=== PATIENT | female | born 1990 | race Hispanic/Latino ===

== ENCOUNTER 2018-01-04 21:54 | Emergency (ER) | payer SELFPAY ==
[2018-01-04 22:06] VITALS: BMI 13.9
[2018-01-04 22:07] VITALS: RESP 18; TEMP 98.7
--- NOTE | 2018-01-04 22:10 | ED PDOC ---
Arrival/HPI - General Time Seen by Provider: 01/04/18 21:56 Historian: Patient - History of Present Illness Narrative History of Present Illness (Text): 01/04/18 22:10 Cady Abdullahi is a 28 year old female, whose past medical history includes asthma , who presents to the Emergency department complaining of abdominal pain. Patient states she has been experiencing intermittent lower abdominal pain for the past week. Patient states her last normal menstrual period was on 2017. Patient denies any fever, chills, nausea, vomiting, diarrhea, urinary symptoms, vaginal discharge, back pain, headache, dizziness, or any other complaints. Time/Duration: 1 week Symptom Onset: Gradual Symptom Course: Unchanged, Intermittent Activities at Onset: Light Context: Home Past Medical History - Provider Review Nursing Documentation Reviewed: Yes - Psychiatric Hx Depression: No Hx Emotional Abuse: No Hx Physical Abuse: No Hx Substance Use: No - Suicidal Assessment Feels Threatened In Home Enviroment: No Family/Social History - Physician Review Nursing Documentation Reviewed: Yes Family/Social History: Unknown Family HX Hx Alcohol Use: No Hx Substance Use: No Hx Substance Use Treatment: No Allergies/Home Meds Allergies/Adverse Reactions: Allergies No Known Allergies Allergy (Verified 01/04/18 22:07) Home Medications: Home Meds Medication Instructions Recorded Confirmed No Known Home Med 04/03/12 01/04/18 Review of Systems - Physician Review All systems were reviewed & negative as marked: Yes - Review of Systems Constitutional: Normal. absent: Fevers Eyes: Normal ENT: Normal Respiratory: Normal. absent: SOB, Cough Cardiovascular: Normal. absent: Chest Pain Gastrointestinal: Abdominal Pain. absent: Diarrhea, Vomiting Genitourinary Female: Normal. absent: Dysuria, Frequency, Hematuria, Urine Output Changes Musculoskeletal: Normal. absent: Back Pain, Neck Pain Skin: Normal. absent: Rash Neurological: Normal. absent: Headache, Dizziness Endocrine: Normal Hemo/Lymphatic: Normal Psychiatric: Normal Physical Exam Vital Signs Reviewed: Yes Vital Signs Temp Pulse Resp BP Pulse Ox 01/04/18 22:06 98.7 F 97 H 18 117/85 97 Temperature: Afebrile Blood Pressure: Normal Pulse: Regular Respiratory Rate: Normal Appearance: Positive for: Well-Appearing, Non-Toxic, Comfortable Pain Distress: None Mental Status: Positive for: Alert and Oriented X 3 - Systems Exam Head: Present: Atraumatic, Normocephalic Pupils: Present: PERRL Extroacular Muscles: Present: EOMI Conjunctiva: Present: Normal Mouth: Present: Moist Mucous Membranes Neck: Present: Normal Range of Motion. No: Meningeal Signs, MIDLINE TENDERNESS , Paraspinal Tenderness Respiratory/Chest: Present: Clear to Auscultation, Good Air Exchange. No: Respiratory Distress, Accessory Muscle Use Cardiovascular: Present: Regular Rate and Rhythm, Normal S1, S2. No: Murmurs Abdomen: No: Tenderness, Distention, Peritoneal Signs Back: Present: Normal Inspection. No: CVA Tenderness, Midline Tenderness, Paraspinal Tenderness Upper Extremity: Present: Normal Inspection. No: Cyanosis, Edema Lower Extremity: Present: Normal Inspection. No: Edema Neurological: Present: GCS=15, CN II-XII Intact, Speech Normal Skin: Present: Warm, Dry, Normal Color. No: Rashes Psychiatric: Present: Alert, Oriented x 3, Normal Insight, Normal Concentration Medical Decision Making ED Course and Treatment: 01/04/18 22:10 Impression: 28 year old female complaining of intermittent lower abdominal pain for the 1 week. Plan: -- Transvaginal US -- Labs, lipase -- UA -- Reassess and disposition Progress Notes: 01/05/18 01:07 Transvaginal US shows: No acute findings. Bilateral ovarian follicles. Complex hemorrhagic right ovarian dominant follicle. CT Abdomen and Pelvis ordered. 01/05/18 02:59 Leaving Against Medical Advice (AMA): The patient is choosing to leave against medical advice. I have personally explained to the patient that choosing to do so may result in permanent bodily harm or . I have discussed at great length that without further evaluation and monitoring there may be unforeseen circumstances and/or deterioration causing permanent bodily harm or as a result of their choice. The patient is alert, oriented, and shows the mental capacity to make clear decisions regarding the patients health care at this time. The patient continues to wish to leave against medical advice. In light of the patients decision to leave against medical advice, patient is aware of the importance to following up as instructed. The patient has been advised that they should return to the emergency room immediately if they change their mind at any time, or if their condition begins to change or worsen in any way. - Lab Interpretations Lab Results: 01/04/18 22:35 01/04/18 22:35 Lab Results 01/04/18 22:35: WBC 11.3 H, RBC 4.23, Hgb 13.0, Hct 38.3, MCV 90.5, MCH 30.7, MCHC 33.9, RDW 14.1, Plt Count 333, MPV 9.6 01/04/18 22:35: Sodium 140, Potassium 4.1, Chloride 101, Carbon Dioxide 27, Anion Gap 16, BUN 10, Creatinine 0.6 L, Est GFR ( Amer) > 60, Est GFR ( Non-Af Amer) > 60, Random Glucose 119 H, Calcium 9.1, Total Bilirubin 0.7, AST 24, ALT 19, Alkaline Phosphatase 64, Total Protein 7.5, Albumin 4.3, Globulin 3.2, Albumin/Globulin Ratio 1.4, Lipase 17 L 01/04/18 22:30: Urine Color yellow, Urine Appearance Sl cloudy, Urine pH 6.0, Ur Specific [place] >= 1.030, Urine Protein 30 H, Urine Glucose (UA) Negative, Urine Ketones Negative, Urine Blood Trace-intact H, Urine Nitrate Negative, Urine Bilirubin Negative, Urine Urobilinogen 0.2, Ur Leukocyte Esterase Moderate H, Urine RBC 10 - 15, Urine WBC 10 - 15, Ur Epithelial Cells Many, Amorphous Sediment Moderate, Urine Bacteria Trace, Urine HCG, Qual Negative I have reviewed the lab results: Yes - RAD Interpretation Radiology Orders: 01/04/18 22:21 TRANSVAGINAL [US] Stat 01/05/18 01:07 ABD & PELVIS IV CONTRAST ONLY [CT] Stat [employer]: Radiologist - Scribe Statement The provider has reviewed the documentation as recorded by the Scriblaurent Solano All medical record entries made by the Azebiblaurent were at my direction and personally dictated by me. I have reviewed the chart and agree that the record accurately reflects my personal performance of the history, physical exam, medical decision making, and the department course for this patient. I have also personally directed, reviewed, and agree with the discharge instructions and disposition. Disposition/Present on Arrival - Present on Arrival Any Indicators Present on Arrival: No History of DVT/PE: No History of Uncontrolled Diabetes: No Urinary Catheter: No History Surgical Site Infection Following: None - Disposition Have Diagnosis and Disposition been Completed?: Yes Diagnosis: Abdominal pain Disposition: AGAINST MEDICAL ADVICE Disposition Time: 03:04 Condition: STABLE Referrals: Rosa Ferrell MD [Primary Care Provider] - Follow up with primary
[2018-01-04 22:44] LABS: MEAN CELL VOLUME 90.5 fl (80.0-105.0); MEAN CORPUSCULAR HEMOGLOBIN 30.7 pg (25.0-35.0); MEAN CORPUSCULAR HGB CONC 33.9 g/dl (31.0-37.0); MEAN PLATELET VOLUME 9.6 fl (7.0-11.0); RBC 4.23 10^6/uL (3.5-6.1); RED CELL DISTRIBUTION WIDTH 14.1 % (11.5-14.5); WHITE BLOOD COUNT 11.3 10^3/ul (4.5-11.0)
[2018-01-04 22:50] LABS: ALB/GLOB RATIO 1.4 (1.1-1.8); ALBUMIN 4.3 g/dL (3.0-4.8); ALT/SGPT 19 U/L (7-56); AST/SGOT 24 U/L (14-36); BLOOD UREA NITROGEN 10 mg/dL (7-21); CALCIUM 9.1 mg/dL (8.4-10.5); GFR AFRICAN-AMERICAN > 60; GFR NON-AFRICAN AMERICAN > 60; LIPASE 17 U/L (23-300)
[2018-01-04 22:55] LABS: URINE APPEARANCE SL CLOUDY (CLEAR); URINE BILIRUBIN NEGATIVE (NEGATIVE); URINE BLOOD TRACE-INTACT (NEGATIVE); URINE GLUCOSE (UA) NEGATIVE (NEGATIVE); URINE LEUKOCYTE ESTERASE MODERATE Leu/uL (NEGATIVE); URINE PROTEIN 30 mg/dL (<30 mg/dL); URINE UROBILINOGEN 0.2 E.U./dL (<1 E.U./dL)
[2018-01-04 22:56] LABS: URINE AMORPHOUS SEDIMENT MODERATE; URINE BACTERIA TRACE (NEG); URINE EPITHELIAL CELLS MANY /hpf (0-5)
[2018-01-04 22:58] LABS: HCG,QUALITATIVE URINE NEGATIVE (NEGATIVE)
[2018-01-05] MEDS ORDERED: Iohexol 350 MG/100 ML VIAL ONE (01:35)
[2018-01-05 03:12] VITALS: BP 121/82; PULSE 95; O2SAT 100
--- NOTE | 2018-01-05 08:57 | CT ---
Date of service: 01/05/2018 PROCEDURE: CT Abdomen and Pelvis without intravenous contrast HISTORY: abdominal pain COMPARISON: None. TECHNIQUE: Technique. Contrast dose: Radiation dose: Total exam DLP = mGy-cm. This CT exam was performed using one or more of the following dose reduction techniques: Automated exposure control, adjustment of the mA and/or kV according to patient size, and/or use of iterative reconstruction technique. FINDINGS: LOWER THORAX: Unremarkable. LIVER: Unremarkable. No gross lesion or ductal dilatation. GALLBLADDER AND BILE DUCTS: Unremarkable. PANCREAS: Unremarkable. No gross lesion or ductal dilatation. SPLEEN: Unremarkable. ADRENALS: Unremarkable. No mass. KIDNEYS AND URETERS: Unremarkable. No hydronephrosis. No solid mass. VASCULATURE: Unremarkable. No aortic aneurysm. BOWEL: Unremarkable. No obstruction. No gross mural thickening. APPENDIX: Unremarkable. Normal appendix. PERITONEUM: Unremarkable. No free fluid. No free air. LYMPH NODES: Unremarkable. No enlarged lymph nodes. BLADDER: Unremarkable. REPRODUCTIVE: Unremarkable. BONES: No acute fracture. OTHER FINDINGS: None. IMPRESSION: Unremarkable non contrast enhanced CT of the abdomen and pelvis.
--- NOTE | 2018-01-05 10:00 | US ---
Date of service: 01/04/2018 PROCEDURE: HISTORY: pain COMPARISON: TECHNIQUE: FINDINGS: Uterus measures 7.9 x 4.1 x 5 2 centimeters. The endometrium measures 1 centimeter. The ovaries have a normal sonographic appearance with bilateral follicles measuring up to 1.5 centimeters on the right. There is no no free fluid in the pelvis. IMPRESSION: Normal pelvic ultrasound.
== END 2018-01-05 02:58 | disposition left against medical advice (07) ==
LOC: ED 21:54
DX: R10.30 Lower abdominal pain, unspecified (principal)
CPT/HCPCS: 76830; 80053; 81001; 83690; 84703; 85027; 87086; 99284; Q9967